=== PATIENT | female | born 1945 | race Caucasian/White ===

== ENCOUNTER 2017-07-12 10:55 | Outpatient (CLI) | payer OTHER | END 2017-07-12 11:00 | disposition home or self-care (01) | LOC: NUCLEAR 10:55 | DX: M85.88 Other specified disorders of bone density and structure, other site (principal); M81.0 Age-related osteoporosis without current pathological fracture; M85.80 Other specified disorders of bone density and structure, unspecified site ==

== ENCOUNTER 2019-05-08 09:37 | Outpatient (CLI) | payer OTHER | END 2019-05-08 10:00 | disposition home or self-care (01) | LOC: MAMO-SONO 09:37 | DX: Z12.31 Encounter for screening mammogram for malignant neoplasm of breast (principal); Z87.898 Personal history of other specified conditions; N64.89 Other specified disorders of breast ==